=== PATIENT | male | born 1970 | race Caucasian/White ===

== ENCOUNTER 2017-10-11 13:34 | Emergency (ER) | payer BC ==
[2017-10-11 14:33] VITALS: BP 153/92
--- NOTE | 2017-10-11 14:41 | UC ---
Back Pain HPI - HPI Summary HPI Summary: States he has chronic lumbago for the past 15 years. He usually gets one exacerbation per year but in the past year has had about 3 of them, and they have been triggered by dehydration and constipation, this time with pain on his left side which radiates to his leg with occasional tingling and numbness. Denies lifting heavy weights or bending over. Denies loss of control of sphincters, weakness of LE or saddleback numbness.He went to his chiropractor yesterday and had xrays ordered which show straightening of the lumbar spine and decreased space btwn L5-S1, DJD changes along lumbar spine. Has been taking "lots of ibuprofen" and yesterday 2 doses of his 's flexeril which helped some. He works as a local company truck driver. Pain is alleviated by lying down - History of Current Complaint Chief Complaint: UCBackPain Stated Complaint: BACK PAIN Time Seen by Provider: 10/11/17 14:34 Hx Obtained From: Patient Onset/Duration: Sudden Onset, Lasting Days Timing: Constant Severity Currently: Severe Pain Intensity: 8 Character: Aching - Allergies/Home Medications Allergies/Adverse Reactions: Allergies Allergy/AdvReac Type Severity Reaction Status Date / Time No Known Allergies Allergy Verified 10/11/17 14:26 Home Medications: Home Medications Acetaminophen/Diphenhydramine [Tylenol Pm Ex-Strength Caplet] 2 each PO BEDTIME PRN 10/11/17 [History Confirmed 10/11/17] Ibuprofen TAB* [Advil TAB*] 600 mg PO Q6H PRN 10/11/17 [History Confirmed ] PMH/Surg Hx/FS Hx/Imm Hx Previously Healthy: Yes - Surgical History Surgical History: Yes Surgery Procedure, Year, and Place: rotator cuff R - Social History Alcohol Use: None Substance Use Type: None Smoking Status (MU): Heavy Every Day Tobacco Smoker Type: Cigarettes Amount Used/How Often: 1-1 1/2 A DAY Have You Smoked in the Last Year: Yes Review of Systems Constitutional: Negative Cardiovascular: Negative Musculoskeletal: Arthralgia, Myalgia All Other Systems Reviewed And Are Negative: Yes Physical Exam Triage Information Reviewed: Yes Appearance: Well-Appearing, No Pain Distress, Well-Nourished Vital Signs: Initial Vital Signs Temp 98.3 F 10/11/17 14:27 Pulse 79 10/11/17 14:27 Resp 14 10/11/17 14:27 BP 153/92 10/11/17 14:27 Pulse Ox 100 10/11/17 14:27 Vital Signs Reviewed: Yes Eyes: Positive: Conjunctiva Clear ENT: Positive: Hearing grossly normal Neck: Positive: Supple Respiratory: Positive: Chest non-tender, Lungs clear, Normal breath sounds, No respiratory distress Cardiovascular: Positive: RRR, No Murmur, Pulses Normal, Brisk Capillary Refill Abdomen Description: Positive: Nontender, No Organomegaly, Soft Bowel Sounds: Positive: Present Musculoskeletal: Positive: Strength Intact, No Edema, Other: - SLR negative. Antialgic gait, Patellar DTR present and symmetrical, [place] DTR 3+ right, 2+ left. Strength on lower extremities preserved in extension and flexion Skin Exam: Normal Back Pain Course/Dx - Course Course Of Treatment: xray shows DJD and decreased IVS btwn L5-S1, MRI lumbar spine is indicated, patient to return with PCP within 3 days for follow up. Start ultracet and tizanidine as indicated, increase fluids and avoid constipation. - Differential Dx/Diagnosis Provider Diagnoses: Left lumbar pain Discharge - Sign-Out/Discharge Documenting (check all that apply): Patient Departure All imaging exams completed and their final reports reviewed: Yes - Discharge Plan Condition: Stable Disposition: HOME Patient Education Materials: Back Pain (ED), Tizanidine (By mouth), Tramadol/ Acetaminophen (By mouth) Forms: *Work Release Referrals: No Primary Care Phys,NOPCP [Primary Care Provider] - Care [facility] [Outside] - Billing Disposition and Condition Condition: STABLE Disposition: Home
== END 2017-10-11 15:31 | disposition home or self-care (01) ==
LOC: UCCORT 13:34
DX: M54.5 Low back pain (principal); F17.210 Nicotine dependence, cigarettes, uncomplicated
CPT/HCPCS: 99212; G0463